=== PATIENT | female | born 2000 | race Two or more races ===

== ENCOUNTER 2022-10-15 19:27 | Emergency (ER) | payer OTHER ==
[~2022-10-15] VITALS: Ht 170.2 cm; Wt 54.4 kg
[2022-10-15] MEDS ORDERED: ATIVAN2 M1 PO (20:49)
[2022-10-15] MEDS ORDERED: DEPAKOTE ER250 MG PO (20:49)
[2022-10-15] MEDS ORDERED: SEROQUEL50 MG PO (20:49)
== END 2022-10-16 02:01 | disposition home or self-care (01) ==
LOC: ER 19:27
DX: S22.20XA Unspecified fracture of sternum, initial encounter for closed fracture (principal); X58.XXXA Exposure to other specified factors, initial encounter; Y93.9 Activity, unspecified; Y92.9 Unspecified place or not applicable; Y99.9 Unspecified external cause status; M94.0 Chondrocostal junction syndrome [Tietze]; K59.00 Constipation, unspecified